=== PATIENT | male | born 1945 | race Caucasian/White ===

== ENCOUNTER 2019-07-21 14:55 | Emergency (ER) | payer OTHER ==
[2019-07-21 15:10] VITALS: BP 122/60; PULSE 78; TEMP 98.5; BMI 17.6
--- NOTE | 2019-07-21 15:40 | PDOC ---
Documentation entered by Sukhjinder Reynolds SCRIBE, acting as scribe for Yessy Johnson DO. Yessy Johnson DO: This documentation has been prepared by the Rodolfo chou Nirvannie, SCRIBE, under my direction and personally reviewed by me in its entirety. I confirm that the documentation accurately reflects all work, treatment, procedures, and medical decision making performed by me. History of Present Illness - General Chief Complaint: Nasal Bleeding Stated Complaint: NOSE BLEED Time Seen by Provider: 07/21/19 15:03 History Source: Patient Exam Limitations: No Limitations - History of Present Illness Initial Comments: 07/21/19 15:41 The patient is a 74 year old male, with no significant past medical history, who presents to the emergency department with 2 days of intermittent epistaxis. As per patient, his epistaxis has been occurring intermittently for the past two days as two episodes lasting 5 minutes, resolved after pressure for 5 min. Patient had his second episode just prior to his arrival to the ED which has resolved prior to his arrival, prompting his arrival. Patient notes a history of being evaluated by an unknown ENT in the far past for recurrent epistaxis. He denies any recent fevers, chills, headache or dizziness. He denies any recent nausea, vomit, diarrhea or constipation. He denies any recent chest pain or shortness of breath. He denies any recent dysuria, frequency, urgency or hematuria. Allergies: [facility] Primary Care Physician: Dr. Menchaca Past History - Past Medical History Allergies/Adverse Reactions: Allergies Allergy/AdvReac Type Severity Reaction Status Date / Time No Known Allergies Allergy Verified 07/21/19 14:59 Home Medications: Ambulatory Orders Cholecalciferol (Vitamin D3) [Vitamin D3 -] 1,000 unit PO DAILY 07/21/19 Docusate Sodium [Docusate 100 mg] 100 mg PO DAILY 07/21/19 Folic Acid 1 mg PO DAILY 07/21/19 Olanzapine [Zyprexa] 20 mg PO DAILY 07/21/19 Paroxetine HCl [Paxil] 20 mg PO DAILY 07/21/19 Petrolatum - White [Vaseline] 1 applic NS HS #1 applic 07/21/19 Quetiapine Fumarate [Seroquel -] 400 mg PO HS 07/21/19 Sodium Chloride [Saline Nasal Mist] 126 ml NS BID #1 mist 07/21/19 Vitamin B-12 PO DAILY 07/21/19 - Psycho Social/Smoking Cessation Hx Smoking History: Unknown if ever smoked Hx Alcohol Use: No Substance Use Type: None Review of Systems - Review of Systems Able to Perform ROS?: Yes Comments:: 07/21/19 15:41 GENERAL/CONSTITUTIONAL: No fever or chills. No weakness. HEAD, EYES, EARS, NOSE AND THROAT:+Epistaxis. No change in vision. No ear pain or discharge. No sore throat. GASTROINTESTINAL: No nausea, vomiting, diarrhea or constipation. GENITOURINARY: No dysuria, frequency, or change in urination. CARDIOVASCULAR: No chest pain or shortness of breath. RESPIRATORY: No cough, wheezing, or hemoptysis. MUSCULOSKELETAL: No joint or muscle swelling or pain. No neck or back pain. SKIN: No rash NEUROLOGIC: No headache, vertigo, loss of consciousness, or change in strength/ sensation. ENDOCRINE: No increased thirst. No abnormal weight change. HEMATOLOGIC/LYMPHATIC: No anemia, easy bleeding, or history of blood clots. ALLERGIC/IMMUNOLOGIC: No hives or skin allergy. All Other Systems: Reviewed and Negative *Physical Exam - Vital Signs Last Vital Signs Temp Pulse Resp BP Pulse Ox 98.5 F 78 20 122/60 95 07/21/19 14:58 07/21/19 14:58 07/21/19 14:58 07/21/19 14:58 07/21/19 14:58 - Physical Exam 07/21/19 15:41 Constitutional: Awake, alert, oriented. No acute distress. Head: Normocephalic. Atraumatic Eyes: PERRL. EOMI. Conjunctivae are not pale. ENT: +Dry blood in the nare. No stigmata of active bleeding. No site visualized. Posterior pharynx without exudates or erythema. Uvula midline. Neck: Supple. Full ROM. No lymphadenopathy. Cardiovascular: Regular rate. Regular rhythm. S1, S2 regular. Distal pulses are 2+ and symmetric. Pulmonary/Chest: No evidence of respiratory distress. Clear to auscultation bilaterally No wheezing, rales or rhonchi. Abdominal: Soft and non-distended. There is no tenderness. No rebound, guarding or rigidity. No organomegaly. No palpable masses. Good bowel sounds. Back: No CVA tenderness. Musculoskeletal: No edema. No cyanosis. No clubbing. Full range of motion in all extremities. No calf tenderness. Radial/pedal pulses are intact and 2+ bilaterally Skin: Skin is warm and dry. No petechiae. No purpura. Neurological: Alert and oriented to person, place, and time. Cranial nerves II -XII are grossly intact. Normal speech. Strength is grossly symmetric. No sensory deficits. Psychiatric: Good eye contact. Normal interaction, affect and behavior. Medical Decision Making - Medical Decision Making 07/21/19 15:37 a/p: 74yo male with intermittent epistaxis over the last 2 days -no active bleeding at this time -no stigmata of active bleeding -will need nasal spray saline and vaseline to the nose -will need ENT follow up -no other complaints -stable for dc back to his ECF Discharge - Discharge Information Problems reviewed: Yes Clinical Impression/Diagnosis: Frequent nosebleeds Condition: Stable Disposition: HOME - Admission No - Additional Discharge Information Prescriptions: Petrolatum - White [Vaseline] 1 applic NS HS #1 applic Sodium Chloride [Saline Nasal Mist] 126 ml NS BID #1 mist - Follow up/Referral Referrals: Yariel Morley MD [Staff Physician] - Ervin Temple MD [Staff Physician] - - Patient Discharge Instructions Patient Printed Discharge Instructions: DI for Nosebleed Additional Instructions: Please use the nasal spray in each nare twice a day. Please apply vaseline to your nares at night before bed. Please make a follow up appointment with the ENT. Please follow up with your PMD as well. Please return to the ER with any further concerns or complaints. - Post Discharge Activity
== END 2019-07-21 15:48 | disposition home or self-care (01) ==
LOC: FER 14:55
DX: R04.0 Epistaxis (principal)
CPT/HCPCS: 99282-25

== ENCOUNTER 2020-03-13 15:38 | Emergency (ER) | payer OTHER ==
--- OUTSIDE RECORDS SUMMARY | 2020-03-13 15:47 | XMS ---
:1945 [facility] Care Team Providers Name Role Phone Nathan Macario MD Unavailable Unavailable Amy Maynard MD Unavailable Unavailable Evangelist Pryor MD Unavailable Unavailable Bonifacio Arnett MD Unavailable Unavailable MD Mickie Unavailable Unavailable UZAIR Bonilla Unavailable Unavailable MD Yunier Unavailable Unavailable MD Cecilio Unavailable Unavailable Sheyla, Unavailable Unavailable Re-disclosure Warning The records that you are about to access may contain information from federally- assisted alcohol or drug abuse programs. If such information is present, then the following federally mandated warning applies: This information has been disclosed to you from records protected by federal confidentiality rules (42 CFR part 2). The federal rules prohibit you from making any further disclosure of this information unless further disclosure is expressly permitted by the written consent of the person to whom it pertains or as otherwise permitted by 42 CFR part 2. A general authorization for the release of medical or other information is NOT sufficient for this purpose. The Federal rules restrict any use of the information to criminally investigate or prosecute any alcohol or drug abuse patient.The records that you are about to access may contain highly sensitive health information, the redisclosure of which is protected by Article 27-F of the [facility] Public Health law. If you continue you may haveaccess to information: Regarding HIV / AIDS; Provided by facilities licensed or operated by the [facility] Office of Mental Health; or Provided by the [facility] Office for People With Developmental Disabilities. If such information is present, then the following [facility] mandated warning applies: This information has been disclosed to you from confidential records which are protected by state law. State law prohibits you from making any further disclosure of this information without the specific written consent of the person to whom it pertains, or as otherwise permitted by law. Any unauthorized further disclosure in violation of state law may result in a fine or halfway sentence or both. A general authorization for the release of medical or other information is NOT sufficient authorization for further disclosure. Allergies and Adverse Reactions Type Description Substance Reaction Status Data Source(s ) Drug allergy Penicillins Penicillins UNKNOWN [facility] Drug allergy No Known Allergies No Known Allergies NO KNOWN [place] [facility] Hospital Encounters Encounter Providers Location Date Indications Data Source(s ) Inpatient Attender: Gerardo 01/04/2020 [facility] MDAttender: 08:02:00 AM [facility] EDT - MDAttender: Evangelist 01/23/2020 Roya MDAttender: 05:45:00 PM Zack Faye EDT MDAttender: Pratibha Corado MDAttender: Hung Carrion DOAdmitter: Pratibha Corado MDConsultant: Amy Maynard MDConsultant: Boni Bonilla NPConsultant: Nathan Macario MD CAVITARY LESION Patient discharged. Functional Status Medications Medication Brand Start Product Dose Route Administrative Pharmacy [facility] Indications Reaction Description Data Name Date Form Instructions Instructions Source(s) Sodium Sodium 01/22/ ENEMA 133 RECTAL active [facility] e Phosphate, Biphos 2020 mL [place] Dibasic phate/ 04:09: Hospital 59.3 MG/ML Sodium 00 PM / Sodium Phosph EDT Phosphate, ate Monobasic 161 MG/ML Enema Sodium Biphosphate /Sodium Phosphate Insulin Insuli 01/22/ UNSPECIF 0 SUBCUT active [facility] Lispro 100 n 2020 IED ANEOUS [place] UNT/ML Human 04:09: Hospital Injectable Lispro 00 PM Solution EDT [Humalog] Insulin Human Lispro Insulin Insuli 01/22/ UNSPECIF 0 SUBCUT active [facility] Lispro 100 n 2020 IED ANEOUS [place] UNT/ML Human 04:09: Hospital Injectable Lispro 00 PM Solution EDT [Humalog] Insulin Human Lispro POLYETHYLEN Polyet 01/22/ POWDER 17 g ORAL active [facility] E GLYCOL hylene 2019 [place] 3350 142 Glycol 04:09: Hospita l MG/ML Oral 3350 00 PM Solution EDT [HealthyLax ] Polyethylen e Glycol 3350 sennosides, Sennos 01/22/ TABLET 2 ORAL active [facility] CUSTODIAL 8.6 MG ides 2019 {Caps [place] Oral Tablet 04:09: ule} Hospit al Sennosides 00 PM EDT Ofloxacin 3 Ofloxa DROP 4 AURICU complet [facility] ro[facility] MG/ML Otic amber [drp] LAR ed [place] Solution (OTIC) Hospital Insurance Providers Payer name Policy type Policy ID Covered Covered alliance party's Policy P kylie / Coverage alliance party ID relationship to Tamez Inf ormation type tamez MEDICARE [id number] SP [id number] 46 6 MEDICAID [id number] SP [id number] MEDICAID [id number] PT [id number] MEDICARE [id number] PT [id number] 46 6 MEDICARE [id number] C1 1 Problems, Conditions, and Diagnoses Code Display Name Description Problem Type Effective Dates Data Source(s) Y84.8 Other medical Y84.8 Diagnosis 01/04/2020 [place] procedures as the 11:10:00 AM EDT Ho spital cause of abnormal reaction of the patient, or of later complication, without mention of misadventure at the time of the procedure 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, right 11:10:00 AM EDT Hospital bronchus or lung J98.4 Other disorders of J98.4 Diagnosis 01/04/2020 [place] lung 11:10:00 AM EDT Hospital F79 Unspecified F79 Diagnosis 01/04/2020 [place] intellectual 11:10:00 AM EDT Hospita l disabilities F99 Mental disorder, not F99 Diagnosis 01/04/2020 [place] otherwise specified 11:10:00 AM EDT Hospital F20.9 Schizophrenia, F20.9 Diagnosis 01/04/2020 [place] unspecified 11:10:00 AM EDT Hospital K59.00 Constipation, K59.00 Diagnosis 01/04/2020 [place] unspecified 11:10:00 AM EDT Hospital E11.9 Type 2 diabetes E11.9 Diagnosis 01/04/2020 [place] [facility] mellitus without 11:10:00 AM EDT Hos pital complications T81.82XA Emphysema T81.82XA Diagnosis 01/04/2020 [place] (subcutaneous) 11:10:00 AM EDT Hospi maryanne resulting from a procedure, initial encounter F17.200 Nicotine dependence, F17.200 Diagnosis 01/04/2020 [place] unspecified, 11:10:00 AM EDT Hospita l uncomplicated J90 Pleural effusion, J90 Diagnosis 01/04/2020 [place] not elsewhere 11:10:00 AM EDT Hospit al classified 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 01/04/2020 [place] unspecified 11:10:00 AM EDT 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 E87.2 Acidosis E87.2 Diagnosis 01/04/2020 [place] 11:10:00 AM EDT Hospital 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 11:10:00 AM EDT Hos pital J44.1 Chronic obstructive J44.1 Diagnosis 01/04/2020 [place] pulmonary disease 11:10:00 AM EDT Ho spital with (acute) exacerbation J18.9 Pneumonia, J18.9 Diagnosis 01/04/2020 [place] unspecified organism 11:10:00 AM EDT Hospital J96.21 Acute and chronic J96.21 Diagnosis 01/04/2020 [place] respiratory failure 11:10:00 AM EDT Hospital with hypoxia J96.22 Acute and chronic J96.22 Diagnosis 01/04/2020 [place] respiratory failure 11:10:00 AM EDT Hospital with hypercapnia C34.82 Malignant neoplasm C34.82 Diagnosis 01/04/2020 [place] of overlapping sites 11:10:00 AM EDT Hospital of left bronchus and lung Surgeries/Procedures Procedure Description Date Indications Data Source(s) Plain chest X-ray (procedure) 01/16/2020 [place] 12:00:00 AM Hospital EDT Physical therapy procedure 01/14/2020 [facility] [place] (regime/therapy) 12:00:00 AM Hospital EDT Diagnostic radiography of 01/12/2020 [facility] [place] abdomen (procedure) 12:00:00 AM Hospital EDT Plain chest X-ray (procedure) 01/12/2020 [place] 12:00:00 AM Hospital EDT Plain chest X-ray (procedure) 01/11/2020 [place] 12:00:00 AM Hospital EDT Plain chest X-ray (procedure) 01/10/2020 [place] 12:00:00 AM Hospital EDT Computerized tomography of 01/09/2020 [place] neck, thorax, abdomen and 12:00:00 AM Ho spital pelvis (procedure) EDT Computerized axial tomography 01/09/2020 [place] of brain with radiopaque 12:00:00 AM Hos pital contrast (procedure) EDT Plain chest X-ray (procedure) 01/09/2020 [place] 12:00:00 AM Hospital EDT Oxygen therapy (procedure) 01/08/2020 [place] [facility] [place] 12:00:00 AM Hospital EDT Plain chest X-ray (procedure) 01/08/2020 [place] 12:00:00 AM Hospital EDT Plain chest X-ray (procedure) 01/08/2020 [place] 12:00:00 AM Hospital EDT Continuous pulse oximetry 01/07/2020 [place] (procedure) 12:00:00 AM Hospital EDT Plain chest X-ray (procedure) 01/07/2020 [place] 12:00:00 AM Hospital EDT Plain chest X-ray (procedure) 01/07/2020 [place] 12:00:00 AM Hospital EDT Biopsy of lung using computed 01/06/2020 [place] tomography guidance 12:00:00 AM Hospital (procedure) EDT Collection of induced sputum 01/05/2020 [place] (procedure) 12:00:00 AM Hospital EDT Pulmonary Screening 01/04/2020 [place] 12:00:00 AM Hospital EDT Echocardiography (procedure) 01/04/2020 [place] 12:00:00 AM Hospital EDT Oxygen therapy (procedure) 01/04/2020 [place] 12:00:00 AM Hospital EDT Nebulizer therapy (procedure) 01/04/2020 [place] 12:00:00 AM Hospital EDT Nebulizer therapy (procedure) 01/04/2020 [place] 12:00:00 AM Hospital EDT Computed tomography of chest 01/04/2020 [place] without contrast 12:00:00 AM Hospital EDT Plain chest X-ray (procedure) 01/04/2020 [place] 12:00:00 AM Hospital EDT Electrocardiographic procedure 01/04/2020 [place] (procedure) 12:00:00 AM Hospital EDT Results ID Date Data Source [id number] 02/04/2020 11:54:00 AM EDT [facility] Name Value Range Interpretation Description Data Sup porting Code Source(s) Document(s ) 2019 Novel [facility] Coronavirus RNA Interpretation Unspecified Specimen Qualitative [place] Probe Detection This lab was ordered by [facility]i [facility] and reported by [facility]. ID Date Data Source [id number] 02/04/2020 11:54:00 AM EDT [facility] Name Value Range Interpretation Description Data Sup porting Code Source(s) Document(s ) SARS [facility] coronavirus 2 RNA This lab was ordered by [employer] and reported by [facility]. ID Date Data Source [id number] 01/30/2020 03:33:00 PM EDT [facility] Name Value Range Interpretation Description Data Sup porting Code Source(s) Document(s ) 2019 Novel [facility] Coronavirus RNA Interpretation Unspecified Specimen Qualitative [place] Probe Detection This lab was ordered by Boni Woods [facility] and reported by [facility]. ID Date Data Source [id number] 01/23/2020 04:06:00 PM EDT [facility] Environmental Field Office Manager:BHAVANA ELANA Name Value Range Interpretation Description Data Sup porting Code Source(s) Document(s ) Glucose 117 mg/dL [place] [Mass/volume] [facility] in Capillary blood by Glucometer ID Date Data Source [id number] 01/23/2020 06:13:00 AM EDT [facility] Name Value Range Interpretation Description Data Sup porting Code Source(s) Document(s ) GLUCOSE RN Notified [facility] ID Date Data Source [id number] 01/19/2020 06:51:00 AM EDT [facility] Name Value Range Interpretation Description Data Sup porting Code Source(s) Document(s ) Calcium 12.0 [place] [Mass/volume mg/dL Hospital ] in Serum or Plasma ID Date Data Source [id number] 01/19/2020 06:51:00 AM EDT [facility] Name Value Range Interpretation Code Description Data Baylee rce(s) Supporting Document(s ) Urea 31.4 [place] nitrogen/Cre Hospital atinine [Mass Ratio] in Serum or Plasma ID Date Data Source [id number] 01/19/2020 06:51:00 AM EDT [facility] Name Value Range Interpretation Description Data Sup porting Code Source(s) Document(s ) Creatinine 0.7 mg/dL [place] [Mass/volume] Hospital in Serum or Plasma ID Date Data Source [id number] 01/19/2020 06:51:00 AM EDT [facility] Name Value Range Interpretation Description Data Sup porting Code Source(s) Document(s ) Urea 22 mg/dL [place] nitrogen Hospital [Mass/volume ] in Serum or Plasma ID Date Data Source [id number] 01/19/2020 06:51:00 AM EDT [facility] Value Range Interpretation Code Description Data Baylee rce(s) Supporting Document(s ) Anion gap in 9 [place] Serum or Hospital Plasma ID Date Data Source [id number] 01/19/2020 06:51:00 AM EDT [facility] Name Value Range Interpretation Description Data Sup porting Code Source(s) Document(s ) Carbon 37 mmol/L [place] dioxide, Hospital total [Moles/volu me] in Serum or Plasma ID Date Data Source [id number] 01/19/2020 06:51:00 AM EDT [facility] Name Value Range Interpretation Description Data Sup porting Code Source(s) Document(s ) Chloride 97 mmol/L [place] [Moles/volum Hospital e] in Serum or Plasma ID Date Data Source [id number] 01/19/2020 06:51:00 AM EDT [facility] Name Value Range Interpretation Description Data Sup porting Code Source(s) Document(s ) Potassium 3.5 [place] [Moles/volume mmol/L Hospital ] in Serum or Plasma ID Date Data Source [id number] 01/19/2020 06:51:00 AM EDT [facility] Name Value Range Interpretation Description Data Sup porting Code Source(s) Document(s ) Sodium 139 mmol/L [place] [Moles/volu Hospital wy] in Serum or Plasma ID Date Data Source [id number] 01/19/2020 06:51:00 AM EDT [facility] Name Value Range Interpretation Description Data Sup porting Code Source(s) Document(s ) Glucose 81 mg/dL [place] [Mass/volume Hospital ] in Serum or Plasma ID Date Data Source [id number] 01/19/2020 06:51:00 AM EDT [facility] Name Value Range Interpretation Description Data Sup porting Code Source(s) Document(s ) Platelet mean 9.2 fL [facility] [Entitic volume] in Blood by Automated count ID Date Data Source [id number] 01/19/2020 06:51:00 AM EDT [facility] Value Range Interpretation Description Data Sup porting Code Source(s) Document(s ) Platelets 244 [place] [#/volume] in 10*3/uL Hospital Blood by Automated count ID Date Data Source [id number] [facility] Data Sup porting Code Source(s) Document(s ) Erythrocyte 18.7 % [place] distribution Hospital width [Ratio] by Automated count ID Date Data Source [id number] 01/19[facility] Description Data Sup porting Code Source(s) Document(s ) Erythrocyte mean 28.8 [place] corpuscular g/dL Hospital hemoglobin concentration [Mass/volume] by Automated count ID Date Data Source [id number] 01/19[facility] Description Data Sup porting Code Source(s) Document(s ) Erythrocyte 22.0 pg [facility] corpuscular hemoglobin [Entitic mass] by Automated count ID Date Data Source [id number] 01/19/2020 06:51:00 AM [facility] Value Range Interpretation Description Data Sup porting Code Source(s) Document(s ) Erythrocyte 76.2 fL [facility] corpuscular volume [Entitic volume] by Automated count ID Date Data Source [id number] 01/19/2020 06:51:00 AM [facility] Value Range Interpretation Description Data Sup porting Code Source(s) Document(s ) Hematocrit 32.6 % [place] [Volume Hospital Fraction] of Blood by Automated count ID Date Data Source [id number] 01/19/2020 06:51:00 AM [facility] Value Range Interpretation Description Data Sup porting Code Source(s) Document(s ) Hemoglobin 9.4 g/dL [place] [Mass/volume] Hospital in Blood ID Date Data Source [id number] 01/19/2020 06:51:00 AM [facility] Value Range Interpretation Description Data Sup porting Code Source(s) Document(s ) Erythrocytes 4.28 [place] [#/volume] in 10*6/uL Hospital Blood by Automated count ID Date Data Source [id number] 01/19/2020 06:51:00 AM EDT [place] [facility] Name Value Range Interpretation Description Data Sup porting Code Source(s) Document(s ) Leukocytes 8.3 [place] [#/volume] in 10*3/uL Hospital Blood by Automated count ID Date Data Source [id number] 01/17/2020 07:31:00 AM EDT [place] [facility] Name Value Range Interpretation Description Data Sup porting Code Source(s) Document(s ) Phosphate 3.8 mg/dL [place] [Mass/volume] Hospital in Serum or Plasma ID Date Data Source [id number] 01/17/2020 07:31:00 AM EDT [facility] Name Value Range Interpretation Description Data Sup porting Code Source(s) Document(s ) Magnesium 2.3 mg/dL [place] [Mass/volume] Hospital in Serum or Plasma ID Date Data Source [id number] 01/17/2020 07:31:00 AM EDT [facility] Name Value Range Interpretation Code Description Data Supporting Source(s) Document(s ) NUCLEATED RBCS 0.0 % [place] (AUTO Hospital DIFF%)DIS ID Date Data Source [id number] 01/17/2020 07:31:00 AM EDT [facility] Value Range Interpretation Description Data Sup porting Code Source(s) Document(s ) Differential AUTOMATED [place] cell count Hospital method - Blood ID Date Data Source [id number] 01/17/2020 07:31:00 AM EDT [facility] Name Value Range Interpretation Description Data Sup porting Code Source(s) Document(s ) Immature 0.05 [place] granulocytes 10*3/uL Hospital [#/volume] in Blood by Automated count ID Date Data Source [id number] 01/17/2020 07:31:00 AM EDT [facility] Name Value Range Interpretation Description Data Sup porting Code Source(s) Document(s ) Basophils 0.05 [place] [#/volume] in 10*3/uL Hospital Blood by Automated count ID Date Data Source [id number] 01/17/2020 07:31:00 AM EDT [facility] Name Value Range Interpretation Description Data Sup porting Code Source(s) Document(s ) Eosinophils 0.11 [place] [#/volume] in 10*3/uL Hospital Blood by Automated count ID Date Data Source [id number] 01/17/2020 07:31:00 AM EDT [facility] Value Range Interpretation Description Data Sup porting Code Source(s) Document(s ) Monocytes 0.81 [place] [#/volume] in 10*3/uL Hospital Blood by Automated count ID Date Data Source [id number] 01/17/2020 07:31:00 AM EDT [facility] Value Range Interpretation Description Data Sup porting Code Source(s) Document(s ) Lymphocytes 0.74 [place] [#/volume] in 10*3/uL Hospital Blood by Automated count ID Date Data Source [id number] 01/17/2020 07:31:00 AM EDT [facility] Value Range Interpretation Description Data Sup porting Code Source(s) Document(s ) Neutrophils 8.34 [place] [#/volume] in 10*3/uL Hospital Blood by Automated count ID Date Data Source [id number] 01/17/2020 07:31:00 AM EDT [facility] Name Value Range Interpretation Description Data Sup porting Code Source(s) Document(s ) Nucleated 0.0 % [place] erythrocytes/10 Hospital 0 leukocytes [Ratio] in Blood by Automated count ID Date Data Source [id number] 01/17/2020 07:31:00 AM EDT [place] [facility] Name Value Range Interpretation Description Data Sup porting Code Source(s) Document(s ) Immature 0.5 % [place] granulocytes/10 Hospital 0 leukocytes in Blood by Automated count ID Date Data Source [id number] 01/17/2020 07:31:00 AM EDT [facility] Value Range Interpretation Description Data Sup porting Code Source(s) Document(s ) Basophils/100 0.5 % [place] leukocytes in Hospital Blood by Automated count ID Date Data Source [id number] 01/17/2020 07:31:00 AM EDT [facility] Value Range Interpretation Description Data Sup porting Code Source(s) Document(s ) Eosinophils/100 1.1 % [place] leukocytes in Hospital Blood by Automated count ID Date Data Source [id number] 01/17/2020 07:31:00 AM EDT [facility] Value Range Interpretation Description Data Sup porting Code Source(s) Document(s ) Monocytes/100 8.0 % [place] leukocytes in Hospital Blood by Automated count ID Date Data Source [id number] 01/17/2020 07:31:00 AM EDT [facility] Value Range Interpretation Description Data Sup porting Code Source(s) Document(s ) Lymphocytes/100 7.3 % [place] leukocytes in Hospital Blood by Automated count ID Date Data Source [id number] 01/17/2020 07:31:00 AM EDT [facility] Value Range Interpretation Description Data Sup porting Code Source(s) Document(s ) Neutrophils/10 82.6 % [place] 0 leukocytes Hospital in Blood by Automated count ID Date Data Source [id number] 01/16/2020 08:31:00 AM EDT [facility] Value Range Interpretation Code Description Data Baylee rce(s) Supporting Document(s ) Cells 100 [place] Counted Hospital Total [#] in Blood ID Date Data Source [id number] 01/16/2020 08:31:00 AM EDT [facility] Value Range Interpretation Code Description Data Supporting Source(s) Document(s ) PLATELET NORMAL [facility] Hospital ID Date Data Source [id number] 01/16/2020 08:31:00 AM EDT [facility] Value Range Interpretation Code Description Data Baylee rce(s) Supporting Document(s ) OVALOCYTES [facility] ID Date Data Source [id number] 01/16/2020 08:31:00 AM EDT [facility] Value Range Interpretation Code Description Data Supporting Source(s) Document(s ) POLYCHROMASIA [facility] ID Date Data Source [id number] 01/16/2020 08:31:00 AM EDT [facility] Value Range Interpretation Code Description Data Baylee rce(s) Supporting Document(s ) MICROCYTOSIS [facility] ID Date Data Source [id number] 01/16/2020 08:31:00 AM EDT [facility] Value Range Interpretation Description Data Sup porting Code Source(s) Document(s ) POIKILOCYTOSIS [facility] Hospital ID Date Data Source [id number] 01/16/2020 08:31:00 AM EDT [facility] Value Range Interpretation Code Description Data Baylee rce(s) Supporting Document(s ) ANISOCYTOSIS [facility] ID Date Data Source [id number] 01/16/2020 08:31:00 AM EDT [facility] Value Range Interpretation Description Data Sup porting Code Source(s) Document(s ) Eosinophils 0.22 [place] [#/volume] in 10*3/uL Hospital Blood by Manual count ID Date Data Source [id number] 01/16/2020 08:31:00 AM EDT [facility] Name Value Range Interpretation Description Data Sup porting Code Source(s) Document(s ) Monocytes 1.33 [place] [#/volume] in 10*3/uL Hospital Blood by Manual count ID Date Data Source [id number] 01/16/2020 08:31:00 AM EDT [facility] Name Value Range Interpretation Description Data Sup porting Code Source(s) Document(s ) Lymphocytes 0.78 [place] [#/volume] in 10*3/uL Hospital Blood by Manual count ID Date Data Source [id number] 01/16/2020 08:31:00 AM EDT [facility] Value Range Interpretation Description Data Sup porting Code Source(s) Document(s ) Neutrophils 8.77 [place] [#/volume] in 10*3/uL Hospital Blood by Manual count ID Date Data Source [id number] 01/16/2020 08:31:00 AM EDT [facility] Value Range Interpretation Description Data Sup porting Code Source(s) Document(s ) Eosinophils/100 2 % [place] leukocytes in Hospital Blood by Manual count ID Date Data Source [id number] 01/16/2020 08:31:00 AM EDT [facility] Value Range Interpretation Description Data Sup porting Code Source(s) Document(s ) Monocytes/100 12 % [place] leukocytes in Hospital Blood by Manual count ID Date Data Source [id number] 01/16/2020 08:31:00 AM EDT [facility] Value Range Interpretation Description Data Sup porting Code Source(s) Document(s ) Lymphocytes/100 7 % [place] leukocytes in Hospital Blood by Manual count ID Date Data Source [id number] 01/16/2020 08:31:00 AM [facility] Name Value Range Interpretation Description Data Sup porting Code Source(s) Document(s ) Band form 1 % [place] neutrophils/100 Hospital leukocytes in Blood ID Date Data Source [id number] 01/16/2020 08:31:00 AM [facility] Name Value Range Interpretation Description Data Sup porting Code Source(s) Document(s ) Neutrophils/100 78 % [place] leukocytes in Hospital Blood by Manual count ID Date Data Source [id number] 01/15/2020 08:12:00 AM [facility] Value Range Interpretation Description Data Sup porting Code Source(s) Document(s ) Albumin 3.6 g/dL [place] [Mass/volume Hospital ] in Serum or Plasma ID Date Data Source [id number] 01/14/2020 08:17:00 AM [facility] .Test performed by:[place], [place] [address]VvtrmbfbZachary Adkins M.D. Name Value Range Interpretation Description Data Sup porting Code Source(s) Document(s ) Calcium.ion 6.7 mg/dL [facility] [Mass/volum e] in Serum or Plasma ID Date Data Source [id number] 01/13/2020 08:12:00 AM [facility] Name Value Range Interpretation Description Data Sup porting Code Source(s) Document(s ) Aspartate 18 U/L [place] aminotransferase [place] [Enzymatic Hospital activity/volume] in Serum or Plasma ID Date Data Source [id number] 01/13/2020 08:12:00 AM [facility] Name Value Range Interpretation Description Data Sup porting Code Source(s) Document(s ) Alanine 13 U/L [place] aminotransferase [place] [Enzymatic Hospital activity/volume] in Serum or Plasma ID Date Data Source [id number] 01/13/2020 08:12:00 AM EDT [facility] Name Value Range Interpretation Description Data Sup porting Code Source(s) Document(s ) Alkaline 124 U/L [place] phosphatase [facility] [Enzymatic activity/volume ] in Serum or Plasma ID Date Data Source [id number] 01/13/2020 08:12:00 AM EDT [facility] Name Value Range Interpretation Description Data Sup porting Code Source(s) Document(s ) Bilirubin.t 0.3 mg/dL [facility] [Mass/volum e] in Serum or Plasma ID Date Data Source [id number] 01/13/2020 08:12:00 AM EDT [facility] Value Range Interpretation Code Description Data Baylee rce(s) Supporting Document(s ) [facility]in[facility]5 [facility] in Serum or Plasma ID Date Data Source [id number] 01/13/2020 08:12:00 AM EDT [facility] Value Range Interpretation Description Data Sup porting Code Source(s) Document(s ) Protein 5.8 g/dL [place] [Mass/volume Hospital ] in Serum or Plasma ID Date Data Source [id number] 01/13/2020 08:12:00 AM EDT [facility] Name Value Range Interpretation Code Description Data Baylee rce(s) Supporting Document(s ) SCHISTOCYTES OCC [facility] ID Date Data Source [id number] [facility] Value Range Interpretation Code Description Data Baylee rce(s) Supporting Document(s ) ELLIPTOCYTES OCC [facility] ID Date Data Source [id number] 01/13/2020 08:12:00 AM [facility] Name Value Range Interpretation Code Description Data Baylee rce(s) Supporting Document(s ) TEARDROP OCC [facility] ID Date Data Source [id number] 01/07/2020 07:28:00 AM [facility] THERAPEUTIC RANGE FOR STANDARD ORALANTIC OAGULANT THERAPY: 2.0-3.0THERAPEUTIC RANGE FOR HIGH DOSE ORALANTICOAGULANT THERAPY (MECHANICAL HEARTVALVE REPLACEMENT): 2.5-3.5 Name Value Range Interpretation Description Data Sup porting Code Source(s) Document(s ) INR in Platelet 1.4 [place] poor plasma by Hospital Coagulation assay ID Date Data Source [id number] 01/07/2020 07:28:00 AM [facility] Name Value Range Interpretation Description Data Sup porting Code Source(s) Document(s ) PT panel - 15.7 s [place] Platelet poor [facility] plasma by Coagulation assay ID Date Data Source [id number] 01/06/2020 10:20:00 AM [facility] UNITS ARE IN ml/min/1.73m2.IF PATIENT IS -ECUADOREAN, MULTIPLY REPORTED RESULT BY 1.21. Name Value Range Interpretation Description Data Sup porting Code Source(s) Document(s ) Glomerular > 60 [place] filtration mL/min Hospital rate/1.73 sq M.predicted [Volume Rate/Area] in Serum or Plasma by Creatinine-bas ed formula (MDRD) ID Date Data Source [id number] 01/05/2020 08:19:00 AM [facility] THERAPEUTIC RANGES:UNFRACTIONATED HEPARI N THERAPY: 60-90 SECONDSARGATROBAN THERAPY: 49-99 SECONDS Name Value Range Interpretation Description Data Sup porting Code Source(s) Document(s ) aPTT in 33.4 s [place] Platelet poor [facility] plasma by Coagulation assay ID Date Data Source [id number] 01/05/2020 08:09:00 AM EDT [facility] Name Value Range Interpretation Description Data Sup porting Code Source(s) Document(s ) MISC TEST SEE COMMENT [place] REFERENCE ABOVE Hospital RANGE ID Date Data Source [id number] 01/05/2020 08:09:00 AM EDT [facility] Aspergillus Ag, S: <0.500 indexReference Value: <0.5ADDITIONAL INFORMATIONThis is a qualitative test and the resulted index value is not indicative of disease severity. Serial testing is recommended for patien ts at high risk for invasive aspergillosis. This assay was performed using the FDA-c leared [employer] Platelia Aspergillus Galactomannan EIA.TEST PERFORMED AT:[place] [id number] Name Value Range Interpretation Code Description Data Supporting Source(s) Document(s ) MISC TEST SEE NOTE [place] RESULT Hospital ID Date Data Source [id number] 01/05/2020 08:09:00 AM EDT [facility] Name Value Range Interpretation Description Data Sup porting Code Source(s) Document(s ) MISC Aspergillus Ag, [place] TEST S Hospital NAME ID Date Data Source [id number] 01/05/2020 08:09:00 AM [facility] ADDITIONAL INFORMATIO N This test was developed and its performance characteristicsdeter mined by [facility] in a manner consistent withCLIA requirements. This test has not been cleared orapproved by the U.S. Food and Drug Administration.Test Performed by:[address] [address]Gen Director: Leland Martinez M.D. Ph.D.; CLIA# [id number] Name Value Range Interpretation Description Data Sup porting Code Source(s) Document(s ) ASPERGILLUS 33.1 mg/L [place] FUMIGATUS, IGG Hospital AB ID Date Data Source [id number] 01/05/2020 08:09:00 AM [facility] THE NIL TUBE VALUE IS USED TO DETERMINE IF THE PATIENT HAS A PREEXISTING IMMUNE RESPONSE WHICH COULD CAUSE A FALSE-POSIT [place] READING ON THE TEST.IN ORDER FOR THE TEST TO BE VALID, THE NIL TUBE MUST HAVE A VA LUE OF <=8.0 IU/ML.THE MITOGEN CONTROL TUBE IS USED TO ASSURE THE PATIENT HAS A HEAL THY IMMUNE STATUS AND ALSO SERVES A CONTROL FOR CORRECT BLOOD HANDLING AND I NCUBATION. IT IS USED TO DETECT FALSE-NEGATIVE READINGS. THE MITOGEN TUB E MUST HAVE A GAMMA INTERFERON VALUE >= 0.5 IU/ML HIGHER THAN THE VALUE OF THE NIL T UBE.THE TB ANTIGEN TUBES ARE COATED WITH THE M. TUBERCULOSIS SPECIFIC ANTIGENS. FOR A TEST TO BE CONSIDERED POSITIVE, THE TB ANTIGEN TUBE VALUE MINUS THE NIL TUBE VA LUE MUST BE >=0.35 IU/ML. Name Value Range Interpretation Description Data Sup porting Code Source(s) Document(s ) MITOGEN 3.42 [place] MINUS NIL [IU]/mL Hospital ID Date Data Source [id number] 01/05/2020 08:09:00 AM [facility] NOTE: NEW METHODOLOGY (TB1/TB2 ANTIGEN) EFFECTIVE 06/28/18. Name Value Range Interpretation Description Data Sup porting Code Source(s) Document(s ) TB2 ANTIGEN 0.00 [place] MINUS NIL [IU]/mL Hospital ID Date Data Source [id number] 01/05/2020 08:09:00 AM [facility] Name Value Range Interpretation Description Data Sup porting Code Source(s) Document(s ) TB1 ANTIGEN 0.00 [place] MINUS NIL [IU]/mL Hospital ID Date Data Source [id number] 01/05/2020 08:09:00 AM [facility] Name Value Range Interpretation Code Description Data Baylee rce(s) Supporting Document(s ) NIL 0.13 [place] [IU]/mL Hospital ID Date Data Source [id number] 01/05/2020 08:09:00 AM [facility] NEGATIVE TEST RESULT. M. TUBERCULOSIS CO MPLEX INFECTION UNLIKELY. Name Value Range Interpretation Code Description Data Baylee rce(s) Supporting Document(s ) QUANTIFER NEGATIVE [place] ON(R)-TB Hospital GOLD ID Date Data Source [id number] 01/05/2020 08:09:00 AM EDT [facility] ADA RECOMMENDATIONS: NON-DIABETES: 4.0-6.0% CONTROLLED DIABETES: 6.0-8.0% UNCONTROLLED DIABETE S: UP TO 20%RECOMMENDED ADA RESULT FOR THERAPY: HEMOGLOBIN A1C RESULT LESS TITUS N 7%.NOTE: METHOD CHANGE EFFECTIVE 12/25/14. Name Value Range Interpretation Description Data Sup porting Code Source(s) Document(s ) Hemoglobin 7.0 % [place] A1c/Hemoglobin. Hospital total in Blood ID Date Data Source [id number] 01/05/2020 07:48:[facility] Value Range Interpretation Code Description Data Baylee rce(s) Supporting Document(s ) HYPOCHROMIA 1+ [facility] ID Date Data Source [id number] 01/05/2020 07:48:00 AM [facility] Name Value Range Interpretation Description Data Sup porting Code Source(s) Document(s ) Basophils 0.10 [place] [#/volume] in 10*3/uL Hospital Blood by Manual count ID Date Data Source [id number] 01/05/2020 07:48:00 AM [facility] Name Value Range Interpretation Description Data Sup porting Code Source(s) Document(s ) Basophils/100 1 % [place] leukocytes in Hospital Blood by Manual count ID Date Data Source [id number] 01/05/2020 04:34:[facility] Name Value Range Interpretation Description Data Sup porting Code Source(s) Document(s ) Leukocyte NEGATIVE [place] esterase Hospital [Presence] in Urine by Test strip ID Date Data Source [id number] 01/05/2020 04:34:00 AM EDT [facility] Name Value Range Interpretation Description Data Sup porting Code Source(s) Document(s ) URINE NEGATIVE [place] NITRITES Hospital ID Date Data Source [id number] 01/05/2020 04:34:00 AM EDT [facility] Name Value Range Interpretation Description Data Sup porting Code Source(s) Document(s ) Erythrocytes NEGATIVE [place] [#/volume] in Hospital Urine by Test strip ID Date Data Source [id number] 01/05/2020 04:34:00 AM EDT [facility] Value Range Interpretation Code Description Data Baylee rce(s) Supporting Document(s ) Bilirubin. NEGATIVE [place] total Hospital [Presence] in Urine by Test strip ID Date Data Source [id number] 01/05/2020 04:34:00 AM EDT [facility] Value Range Interpretation Description Data Sup porting Code Source(s) Document(s ) Urobilinogen 1.0 [place] [Units/volume] mg/dL Hospital in Urine by Test strip ID Date Data Source [id number] 01/05/2020 04:34:00 AM EDT [facility] Value Range Interpretation Description Data Sup porting Code Source(s) Document(s ) Ketones NEGATIVE [place] [Mass/volume Hospital ] in Urine by Test strip ID Date Data Source [id number] 01/05/2020 04:34:00 AM EDT [facility] Name Value Range Interpretation Description Data Sup porting Code Source(s) Document(s ) Glucose NEGATIVE [place] [Mass/volume Hospital ] in Urine by Test strip ID Date Data Source [id number] 01/05/2020 04:34:00 AM EDT [facility] Name Value Range Interpretation Description Data Sup porting Code Source(s) Document(s ) Protein NEGATIVE [place] [Presence] Hospital in Urine by Test strip ID Date Data Source [id number] 01/05/2020 04:34:00 AM EDT [facility] Name Value Range Interpretation Code Description Data Baylee rce(s) Supporting Document(s ) pH of Urine 6.0 [place] by Test Hospital strip ID Date Data Source [id number] 01/05/2020 04:34:00 AM EDT [facility] Value Range Interpretation Code Description Data Supporting Source(s) Document(s ) Specific 1.017 [place] gravity of Hospital Urine by Test strip ID Date Data Source [id number] 01/05/2020 04:34:00 AM EDT [facility] Name Value Range Interpretation Description Data Sup porting Code Source(s) Document(s ) Clarity in Urine CLEAR [place] by Refractometry Hospital automated ID Date Data Source [id number] 01/05/2020 04:34:00 AM EDT [facility] Name Value Range Interpretation Code Description Data Baylee rce(s) Supporting Document(s ) Color of YELLOW [place] Urine Hospital ID Date Data Source [id number] 01/04/2020 11:20:00 AM EDT [facility] Name Value Range Interpretation Description Data Sup porting Code Source(s) Document(s ) Bacteria YEAST [place] identified in Hospital Sputum by Respiratory culture ID Date Data Source [id number] 01/04/2020 08:52:00 AM EDT [facility] Name Value Range Interpretation Description Data Sup porting Code Source(s) Document(s ) Bacteria No growth [place] identified in Hospital Blood by Culture ID Date Data Source [id number] 01/04/2020 08:41:00 AM EDT [facility] TEST PERFORMED BY [employer] ULTRA SENSITIVE CENTAUR CHEMILUMINESCENCE METHOD. Name Value Range Interpretation Description Data Sup porting Code Source(s) Document(s ) Troponin < 0.01 [place] I.cardiac ng/mL Hospital [Mass/volume ] in Serum or Plasma ID Date Data Source [id number] 01/04/2020 08:40:00 AM EDT [facility] Name Value Range Interpretation Description Data Sup porting Code Source(s) Document(s ) IONIZED 1.38 [place] CALCIUM mmol/L Hospital ID Date Data Source [id number] 01/04/2020 08:40:00 AM EDT [facility] Value Range Interpretation Code Description Data Supporting Source(s) Document(s ) METHEMOGLOBIN 0.3 % [facility] ID Date Data Source [id number] 01/04/2020 08:40:00 AM EDT [facility] Value Range Interpretation Description Data Sup porting Code Source(s) Document(s ) CARBOXYHEMOGLOBIN 7.8 % [facility] ID Date Data Source [id number] 01/04/2020 08:40:00 AM EDT [facility] Value Range Interpretation Code Description Data Baylee rce(s) Supporting Document(s ) ABG TEMP 98.6 [facility] ID Date Data Source [id number] 01/04/2020 08:40:00 AM EDT [facility] Value Range Interpretation Code Description Data Baylee rce(s) Supporting Document(s ) FIO2 21 % [facility] ID Date Data Source [id number] 01/04/2020 08:40:00 AM EDT [facility] Name Value Range Interpretation Code Description Data Baylee rce(s) Supporting Document(s ) ABG BE 4.3 mmol/L [facility] ID Date Data Source [id number] 01/04/2020 08:40:00 AM EDT [facility] Value Range Interpretation Code Description Data Baylee rce(s) Supporting Document(s ) ABG O2SAT 90 % [facility] ID Date Data Source [id number] 01/04/2020 08:40:00 AM EDT [facility] Value Range Interpretation Code Description Data Baylee rce(s) Supporting Document(s ) ABG HCO3 30 mmol/L [facility] ID Date Data Source [id number] 01/04/2020 08:40:00 AM EDT [facility] Value Range Interpretation Code Description Data Baylee rce(s) Supporting Document(s ) ABG PO2 59 mm[Hg] [facility] ID Date Data Source [id number] 01/04/2020 08:40:00 AM EDT [facility] Value Range Interpretation Code Description Data Baylee rce(s) Supporting Document(s ) ABG PCO2 51 mm[Hg] [facility] ID Date Data Source [id number] 01/04/2020 08:40:00 AM EDT [facility] Value Range Interpretation Code Description Data Baylee rce(s) Supporting Document(s ) ABG PH 7.39 [facility] ID Date Data Source [id number] 01/04/2020 08:40:00 AM EDT [facility] Value Range Interpretation Code Description Data Baylee rce(s) Supporting Document(s ) ABG MODE Room Air [facility] ID Date Data Source [id number] 01/04/2020 08:40:00 AM EDT [facility] Name Value Range Interpretation Code Description Data Supporting Source(s) Document(s ) ABG SITE Left Radial [facility] ID Date Data Source [id number] 01/04/2020 08:40:00 AM EDT [facility] Name Value Range Interpretation Code Description Data Supporting Source(s) Document(s ) ABG SOURCE ARTERIAL [facility] ID Date Data Source [id number] 01/04/2020 08:40:00 AM EDT [facility] Name Value Range Interpretation Code Description Data Baylee rce(s) Supporting Document(s ) BELL TEST POSITIVE [facility] Procedure Social History Code Duration Value Status Description Data Source(s ) Smoking 01/04/2020 Smokes tobacco completed Smokes tobacco [place] 06:28:00 PM EDT daily (finding) daily (finding) Hospital Vital Signs ID Date Data Source [id number] Name Value Range Interpretation Code Description Data Source(s) Diastolic blood 66 mm[Hg] 66 mm[Hg] [facility] pressure [facility] Systolic blood 101 mm[Hg] 101 mm[Hg] [facility] Hospital Respiratory rate 18 /min 18 /min [facility] Heart rate 81 /min 81 /min [facility] Body temperature 36.51459 36.71151 [facility] Body temperature 97.9 [degF] 97.9 [degF] [facility] Body mass index 23.0 kg/m2 23.0 kg/m2 [facility] (BMI) [Ratio] Hospital Body weight 140.30 140.30 [lb_av] [facility] [lb_av] Hospital
--- NOTE | 2020-03-13 15:50 | PDOC ---
History of Present Illness - General Chief Complaint: Psychiatric Stated Complaint: FELL, NO SPECIFIC COMPLAINT Time Seen by Provider: 03/13/20 15:43 - History of Present Illness Initial Comments: 03/13/20 15:48 74 M with no reported PMH presents to ED after trip and fall. Pt was walking outside when he tripped and landed forward. Pt was able to brace himself with his hands. Denies LOC. Does not remember if he hit his head or not. Has no complaints at this time. Denies ROMERO. Denies neck or back pain. Denies upper or lower extremity pain. Past History - Medical History Allergies/Adverse Reactions: Allergies Allergy/AdvReac Type Severity Reaction Status Date / Time No Known Allergies Allergy Verified 03/13/20 15:58 Home Medications: Ambulatory Orders Docusate Sodium [Docusate 100 mg] 100 mg PO HS 07/21/19 Folic Acid 1 mg PO DAILY 07/21/19 Olanzapine [Zyprexa] 20 mg PO HS 07/21/19 Paroxetine HCl [Paxil] 20 mg PO HS 07/21/19 Petrolatum - White [Vaseline] 1 applic NS HS #1 applic 07/21/19 Quetiapine Fumarate [Seroquel -] 400 mg PO HS 07/21/19 Sodium Chloride [Saline Nasal Mist] 126 ml NS BID #1 mist 07/21/19 Cholecalciferol (Vitamin D3) [Vitamin D3] 2,000 unit PO DAILY 03/13/20 Cyanocobalamin (Vitamin B-12) [Vitamin B-12] 1,000 mcg PO DAILY 03/13/20 Polyethylene Glycol 3350 [Miralax (For Daily Use) -] 17 gm PO DAILY 03/13/20 Sennosides [Senna] 8.6 mg PO HS 03/13/20 COPD: No Psychiatric Problems: Yes (SCHIZOPHRENIA) - Psycho-Social/Smoking History Smoking History: Unknown if ever smoked Have you smoked in the past 12 months: Yes Number of Cigarettes Smoked Daily: 30 'Breaking Loose' booklet given: 07/21/19 Review of Systems - Review of Systems Comments:: 03/13/20 15:49 "GENERAL/CONSTITUTIONAL: No fever or chills. No weakness. HEAD, EYES, EARS, NOSE AND THROAT: No change in vision. No ear pain or discharge. No sore throat. CARDIOVASCULAR: No chest pain, no shortness of breath, no loss of consciousness RESPIRATORY: No cough, wheezing, or hemoptysis. GASTROINTESTINAL: No nausea, vomiting, diarrhea or constipation. GENITOURINARY: No dysuria, frequency, or change in urination. MUSCULOSKELETAL: No joint or muscle swelling or pain. No neck or back pain. SKIN: No rash NEUROLOGIC: No vertigo, no change in strength/sensation. ENDOCRINE: No increased thirst. No abnormal weight change. HEMATOLOGIC/LYMPHATIC: No anemia, easy bleeding, or history of blood clots. ALLERGIC/IMMUNOLOGIC: No hives or skin allergy. *Physical Exam - Physical Exam 03/13/20 15:49 GENERAL: Awake, alert, in no acute distress. HEAD: No signs of trauma EYES: PERRLA, EOMI, sclera anicteric, conjunctiva clear ENT: Auricles normal inspection, hearing grossly normal, nares patent, oropharynx clear without exudates. Moist mucosa NECK: Nontender, no stepoffs, Normal ROM, supple, no lymphadenopathy, JVD, or masses LUNGS: Breath sounds equal, clear to auscultation bilaterally. No wheezes, and no crackles HEART: Regular rate and rhythm, normal S1 and S2, no murmurs, rubs or gallops ABDOMEN: Soft, nontender, normoactive bowel sounds. No guarding, no rebound. No masses EXTREMITIES: Normal range of motion, no edema. No clubbing or cyanosis. No cords, erythema, or tenderness NEUROLOGICAL: Cranial nerves II through XII intact. 5/5 strength and sensation in all extremities, Normal speech, normal gait, normal cerebellar function SKIN: Warm, Dry, normal turgor, no rashes or lesions noted. ED Treatment Course - RADIOLOGY Radiology Studies Ordered: Category Date Time Status HEAD CT WITHOUT CONTRAST [CT] Stat CT Scan 03/13/20 15:47 Ordered Medical Decision Making - Medical Decision Making 03/13/20 15:49 74 M with mechanical fall. No complaints in the ED and no visible signs of trauma. However, given age, will obtain head CT. - CT head 03/13/20 17:05 CT negative Pt is well appearing, with normal vitals. Clinically stable for DC at this time. I discussed the physical exam findings, ancillary test results and final diagnoses with the patient. I answered all of the patient's questions. The patient was satisfied with the care received and felt comfortable with the discharge plan and treatment plan. The patient agrees to follow up with the primary care physician within 24-72 hours. Discharge - Discharge Information Problems reviewed: Yes Clinical Impression/Diagnosis: Fall Condition: Good Disposition: HOME - Follow up/Referral Referrals: Jasmyn Menchaca MD [Primary Care Provider] - - Patient Discharge Instructions Patient Printed Discharge Instructions: How to Prevent Falls Additional Instructions: Follow up with your primary doctor within 1 week. Return to the ER for new or concerning symptoms. - Post Discharge Activity Work/Back to School Note: My Personal Safety Plan
[2020-03-13 16:19] VITALS: BP 117/65; PULSE 90; TEMP 98.7
== END 2020-03-13 17:20 | disposition home or self-care (01) ==
LOC: FER 15:38
DX: Z04.3 Encounter for examination and observation following other accident (principal)
CPT/HCPCS: 70450-TC; 99284-25